=== PATIENT | female | born 1960 | race Caucasian/White ===

== ENCOUNTER 2023-05-20 12:46 | Outpatient (AMB) | payer BC, SELFPAY ==
--- NOTE | 2023-05-20 13:10 | MHC.OFFVIS ---
Intake Intake Visit Reasons: Hx of Nephrolithiasis Intake Note: New Patient presents for initial visit for hx of nephrolithiasis Urology Medications: none Blood Thinner: none Compliance Analyst Required: No Accompanied by: Self / Same As Patient Allergies No Known Allergies Allergy (Verified 05/20/23 14:48) Medication List - Last Reconciled 05/20/23 by KARLOS JoeP-BC alendronate 70 mg PO QWEEK gabapentin 300 mg PO DAILY HPI HPI Comments History of Present Illness Details Naya is a very pleasant 8-year-old female patient of . She presents to the office today as a new patient for nephrolithiasis. In discussion with the patient today she reports recently moving from [place] to [place]. She discusses her longstanding history of nephrolithiasis with multiple previous surgical interventions. She discusses moving here to be closer to her parents however has recently lost her father who was a professor/scientists at [employer]. She reports last surgical intervention for nephrolithiasis was earlier this year. She reports that although she was living here in [place] she drove to [place] for further stone intervention. She discusses at length multiple 24 hour urine collections she has had in the past at which time she was noted to have hypercalcemia and has since been following a alkalinic diet. She discusses when following her diet she typically does not have any issues however under stressful events she will experience nephrolithiasis. When asked she is currently reporting intermittent left-sided flank pain. She otherwise denies urinary urgency, urinary frequency, incontinence, nocturia, hematuria, dysuria, foul smelling urine, changes to urinary stream, flank pain, fever, and or chills. She is happy with her current voiding parameters. In office urinalysis results reviewed with the patient today. In review of patient's chart it appears most recent renal ultrasound 10/17 noting left-sided 0.5 mm calculus. Review of Systems Const All systems reviewed & are unremarkable except as noted in HPI and below Reports no additional complaints Eyes Reports no additional complaints ENT Reports no additional complaints Card Reports no additional complaints Resp Reports no additional complaints GI Reports no additional complaints Reports as per HPI Musc Reports no additional complaints Neuro Reports no additional complaints Psych Reports no additional complaints Endo Reports no additional complaints Moo/Lymph Reports no additional complaints Aller/Immun Reports no additional complaints Physical Exam Const General: cooperative, healthy appearing, comfortable, no acute distress, well developed, alert and awake Orientation/consciousness: patient oriented x3 Limitations: no limitations HEENT Head: Yes normal to inspection, Yes normocephalic and Yes atraumatic Ears: hearing grossly normal bilaterally Eyes General: appearance normal, both eyes and all related structures Neck Neck: Yes normal visual inspection and Yes trachea midline Chest Chest palpation & inspection: normal inspection of the chest Resp Effort & Inspection: normal respiratory effort and able to speak in complete sentences Cardio Rate: regular rate GI Inspection: Yes normal to inspection General: Yes no CVA tenderness Back/Spine/Pelvis Back: no CVA tenderness Skin General skin exam: no rashes or lesions noted Neuro General: patient oriented x3 Extrem General: Yes normal to inspection Psych Appearance: grossly normal and well kempt Mental Status: mental status grossly normal Speech and movement: Normal speech and movement present and Clear speech present Affect: normal affect Attitude: cooperative Thought process: Normal thought process present Thought content: Normal thought content present Insight: Good insight present (Psych) Judgement: Good judgement present (Psych) Results AMB Urinalysis, Automated UA Leukoctes 0 Divya/uL Last Edit by [employer] on 05/20/23 13:22 UA Nitrite Negative Last Edit by [employer] on 05/20/23 13:22 UA Urobilinogen 0.2 mg/dL Last Edit by [employer] on 05/20/23 13:22 UA Protein 0 mg/dL Last Edit by [employer] on 05/20/23 13:22 UA pH 7.0 Last Edit by [employer] on 05/20/23 13:22 UA Blood 0 Aditya/uL Last Edit by [employer] on 05/20/23 13:22 UA Specific [place] 1.010 Last Edit by [employer] on 05/20/23 13:22 UA Ketone Negative Last Edit by [employer] on 05/20/23 13:22 UA Bilirubin 0 mg/dL Last Edit by [employer] on 05/20/23 13:22 UA Glucose 0 mg/dL Last Edit by [employer] on 05/20/23 13:22 Results Reviewed Results Reviewed: Laboratory Last Values Urine pH (Auto) 7.0 05/20/23 13:12 Specific [place] (Auto) 1.010 05/20/23 13:12 Urine Protein (Auto) 0 mg/dL 05/20/23 13:12 Glucose (UA)(Auto) 0 mg/dL 05/20/23 13:12 Urine Ketones (Auto) Negative 05/20/23 13:12 Urine Blood (Auto) 0 Aditya/uL 05/20/23 13:12 Urine Nitrite (Auto) Negative 05/20/23 13:12 Urine Bilirubin (Auto) 0 mg/dL 05/20/23 13:12 Urine Urobilinogen (Auto) 0.2 mg/dL 05/20/23 13:12 Leukocyte Esterase (Auto) 0 Divya/uL 05/20/23 13:12 Assessment & Plan Assessment & Plan (1) Nephrolithiasis: Code(s): N20.0 - Calculus of kidney (2) Flank pain: Code(s): R10.9 - Unspecified abdominal pain Plan In office urinalysis results reviewed with the patient today; as noted above. Will obtain renal ultrasound for further assessment evaluation. Will obtain 24 hour urine collection for further assessment evaluation. Discussed, educated, encouraged on the importance of drinking plenty of water daily. Discussed possible near future potassium citrate and or vitamin B6. Patient reports be happy with current voiding parameters. Follow-up in 1-2 months with imaging and 24 urine collection to be completed prior; or sooner with any issues, concerns, and or questions. Orders: Orders AMB Urinalysis Automated Today Z13.9 - Encounter for screening, unspecified URORISK Today N20.0 - Calculus of kidney US renal BI Today N20.0 - Calculus of kidney Patient Instructions: The patient had an opportunity to ask questions regarding the treatment plan. All questions were answered. Physical exam, labs, and imaging were discussed and reviewed in detail. As well as risks, benefits, and discussion of treatment choices. No major barriers to understanding were identified. The patient expressed understanding and agreement with the above treatment plan. The patient was made aware they should contact our office by phone for worsening of their current condition, the appearance of new symptoms, or with any questions or concerns. Compliance is encouraged with any medications and follow up testing that is ordered. It is a privilege to be allowed the opportunity to participate in? your urological care.? Again, if you have any questions or concerns If you have any questions or concerns please do not hesitate to contact me. The office is [phone]. This note is constructed using voice recognition software. While every effort has been made to ensure accuracy united states marshal errors may have been included. Yours sincerely, LIVAN Joe-KOLBY Coding Level of Care Code New Pt Level 3 (32816) Diagnoses Nephrolithiasis N20.0 Flank pain R10.9
== END 2023-05-20 13:59 | disposition home or self-care (01) ==
PROVIDERS: PCP Family Medicine Adult Medicine; Visit Provider Nurse Practitioner Family
DX: N20.0 Calculus of kidney (principal); R10.9 Unspecified abdominal pain; Z13.9 Encounter for screening, unspecified
CPT/HCPCS: 99203

== ENCOUNTER → 2023-05-20 12:46 | Outpatient (BNVA) | payer BC, SELFPAY | PROVIDERS: PCP Family Medicine Adult Medicine; Visit Provider Nurse Practitioner Family | DX: N20.0 Calculus of kidney (principal) | CPT/HCPCS: 81003 ==

== ENCOUNTER 2023-07-07 11:24 | Outpatient (REF) | payer BC, SELFPAY ==
--- NOTE | ~2023-07-07 | US_ITS ---
EXAMINATION: US RETROPERITONEAL LIMITED (RENAL ONLY) CLINICAL INFORMATION: Calculus of kidney. COMPARISON: None available. TECHNIQUE: Real-time imaging of the kidneys. Limited visualization due to bowel gas and body habitus. FINDINGS: RIGHT KIDNEY: 9.4 x 3.6 x 5.6 cm (SAG x AP x TRV). Right renal 0.5 cm lower pole calculus. No hydronephrosis. Renal cortical thickness is normal. Limited visualization. LEFT KIDNEY: 11.2 x 5.0 x 6.1 cm (SAG x AP x TRV). No hydronephrosis. A 0.3 cm upper pole calculus. Renal cortical thickness is normal. Limited visualization. US/US renal BI IMPRESSION: Bilateral nephrolithiasis. Bilateral nonobstructive renal calculi. No hydronephrosis.
== END 2023-07-07 11:25 | disposition home or self-care (01) ==
LOC: HO.HMGCX 11:24
PROVIDERS: Visit Provider Nurse Practitioner Family
DX: N20.0 Calculus of kidney (principal)
CPT/HCPCS: 76775

== ENCOUNTER 2023-07-18 10:59 | Outpatient (AMB) | payer BC, SELFPAY ==
--- NOTE | 2023-07-18 11:06 | A.OFFVIS_ITS ---
Intake Intake Visit Reasons: US results Intake Note: Patient presents for follow up visit for hx of nephrolithiasis/ultrasound/litholink (imaging 07/07/23) Urology Medications: none Blood Thinner: none Anesthesiologist Required: No Accompanied by: Self / Same As Patient Allergies No Known Allergies Allergy (Verified 07/19/23 21:04) Medication List - Last Reconciled 07/19/23 by EMILY Joe gabapentin 300 mg PO DAILY HPI HPI Comments History of Present Illness Details Naya is a very pleasant 62-year-old female patient of . She presents to the office today for follow-up of her nephrolithiasis. Recent renal imaging results reviewed with the patient today. Right kidney with 5 mm lower pole calculus. No hydronephrosis. Left kidney with 3 mm upper pole calculus. No hydronephrosis. When asked patient reports to be doing and feeling well. Recent 24 hour urine collection results reviewed with the patient today. Discussed at length hypercalciuria noted on recent 24 hour urine collection. Discussed initiation of indapamide 2.5 mg daily with reassessment of 24 hour urine collection in 3 months. However, patient discusses having recently gone to a homeopathic provider and will be undergoing bioidentical HRT and is not looking to start any new medications at this time. When asked she does report intermittent bilateral flank pain. However, she denies urinary urgency, urinary frequency, incontinence, nocturia, hematuria, dysuria, foul- smelling urine, changes to urinary stream, fever, and or chills. She is happy with her current voiding parameters. In office urinalysis results reviewed with the patient today. She has an extensive nephrolithiasis workup with previous surgical interventions in [place] with her previous urologist. She moved her from [place] to be closer to her parents however has recently lost her father who was a professor/rocket scientist at [employer]. She discusses at length having had multiple 24 hour urine collections in the past at which time she was noted to have hypercalcemia and has since been following a alkalinic diet. She discusses when following her diet she typically does not have any issues however under stressful events she will experience nephrolithiasis. She otherwise denies any other issues or concerns at this time. Review of Systems Const All systems reviewed & are unremarkable except as noted in HPI and below Reports no additional complaints Eyes Reports no additional complaints ENT Reports no additional complaints Card Reports no additional complaints Resp Reports no additional complaints GI Reports no additional complaints Reports as per HPI Musc Reports no additional complaints Neuro Reports no additional complaints Psych Reports no additional complaints Endo Reports no additional complaints Moo/Lymph Reports no additional complaints Aller/Immun Reports no additional complaints Physical Exam Const General: cooperative, healthy appearing, comfortable, no acute distress, well developed, alert and awake Orientation/consciousness: patient oriented x3 Limitations: no limitations HEENT Head: Yes normal to inspection, Yes normocephalic and Yes atraumatic Ears: hearing grossly normal bilaterally Eyes General: appearance normal, both eyes and all related structures Neck Neck: Yes normal visual inspection and Yes trachea midline Chest Chest palpation & inspection: normal inspection of the chest Resp Effort & Inspection: normal respiratory effort and able to speak in complete sentences Cardio Rate: regular rate GI Inspection: Yes normal to inspection General: Yes no CVA tenderness Back/Spine/Pelvis Back: no CVA tenderness Skin General skin exam: no rashes or lesions noted Neuro General: patient oriented x3 Extrem General: Yes normal to inspection Psych Appearance: grossly normal and well kempt Mental Status: mental status grossly normal Speech and movement: Normal speech and movement present and Clear speech present Affect: normal affect Attitude: cooperative Thought process: Normal thought process present Thought content: Normal thought content present Insight: Good insight present (Psych) Judgement: Good judgement present (Psych) Results AMB Urinalysis, Automated UA Leukoctes 0 Divya/uL Last Edit by [employer] on 07/18/23 11:30 UA Nitrite Negative Last Edit by [employer] on 07/18/23 11:30 UA Urobilinogen 0.2 mg/dL Last Edit by [employer] on 07/18/23 11:30 UA Protein 0 mg/dL Last Edit by [employer] on 07/18/23 11:30 UA pH 6.5 Last Edit by [employer] on 07/18/23 11:30 UA Blood 0 Aditya/uL Last Edit by [employer] on 07/18/23 11:30 UA Specific [place] 1.005 Last Edit by [employer] on 07/18/23 11:30 UA Ketone Negative Last Edit by [employer] on 07/18/23 11:30 UA Bilirubin 0 mg/dL Last Edit by Ruth Payne on 07/18/23 11:30 UA Glucose 0 mg/dL Last Edit by Ruth Payne on 07/18/23 11:30 Results Reviewed Results Reviewed: Laboratory Last Values Urine pH (Auto) 6.5 07/18/23 11:21 Specific [place] (Auto) 1.005 07/18/23 11:21 Urine Protein (Auto) 0 mg/dL 07/18/23 11:21 Glucose (UA)(Auto) 0 mg/dL 07/18/23 11:21 Urine Ketones (Auto) Negative 07/18/23 11:21 Urine Blood (Auto) 0 Aditya/uL 07/18/23 11:21 Urine Nitrite (Auto) Negative 07/18/23 11:21 Urine Bilirubin (Auto) 0 mg/dL 07/18/23 11:21 Urine Urobilinogen (Auto) 0.2 mg/dL 07/18/23 11:21 Leukocyte Esterase (Auto) 0 Divya/uL 07/18/23 11:21 Date of Service: 07/07/23 EXAMINATION: US RETROPERITONEAL LIMITED (RENAL ONLY) FINDINGS: RIGHT KIDNEY: 9.4 x 3.6 x 5.6 cm (SAG x AP x TRV). Right renal 0.5 cm lower pole calculus. No hydronephrosis. Renal cortical thickness is normal. Limited visualization. LEFT KIDNEY: 11.2 x 5.0 x 6.1 cm (SAG x AP x TRV). No hydronephrosis. A 0.3 cm upper pole calculus. Renal cortical thickness is normal. Limited visualization. IMPRESSION: Bilateral nephrolithiasis. Bilateral nonobstructive renal calculi. No hydronephrosis. 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 Recent renal ultrasound results reviewed with the patient today; as noted above. Recent 24 hour urine collection results reviewed with the patient today; as noted above. Discussed, stress, encouraged on the importance of drinking plenty of water daily. Will obtain CT KUB for further assessment evaluation. Discussed trial of indapamide 2.5 mg daily; however patient declines at this time. Patient reports to be happy with current voiding parameters. Follow-up in 2-4 weeks with imaging to be completed prior; or sooner with any issues, concerns, and or questions. Orders: Orders AMB Urinalysis Automated 07/18/23 Z13.9 - Encounter for screening, unspecified CT kidney stone 07/18/23 N20.0 - Calculus of kidney, R10.9 - Unspecified abdominal pain Patient Instructions: The patient had an opportunity to ask questions regarding the treatment plan. All questions were answered. Physical exam, labs, and imaging were discussed and reviewed in detail. As well as risks, benefits, and discussion of treatment choices. No major barriers to understanding were identified. The patient expressed understanding and agreement with the above treatment plan. The patient was made aware they should contact our office by phone for worsening of their current condition, the appearance of new symptoms, or with any questions or concerns. Compliance is encouraged with any medications and follow up testing that is ordered. It is a privilege to be allowed the opportunity to participate in? your urological care.? Again, if you have any questions or concerns If you have any questions or concerns please do not hesitate to contact me. The office is [phone]. This note is constructed using voice recognition software. While every effort has been made to ensure accuracy bottle and glass inspector errors may have been included. Yours sincerely, EMILY Joe Coding Level of Care Code Est Pt Level 4 (95226) Diagnoses Nephrolithiasis N20.0 Flank pain R10.9 Hypercalciuria R82.994 Time Spent (min) 40
== END 2023-07-18 12:07 | disposition home or self-care (01) ==
PROVIDERS: PCP Family Medicine Adult Medicine; Visit Provider Nurse Practitioner Family
DX: N20.0 Calculus of kidney (principal); R10.9 Unspecified abdominal pain; R82.994 Hypercalciuria
CPT/HCPCS: 99214

== ENCOUNTER 2023-07-18 10:59 | Outpatient (REF) | payer BC, SELFPAY | END 2023-07-18 11:00 | disposition home or self-care (01) | LOC: HO.LAB 10:59 | PROVIDERS: PCP Family Medicine Adult Medicine; Visit Provider Nurse Practitioner Family | DX: N20.0 Calculus of kidney (principal); R10.9 Unspecified abdominal pain; R82.994 Hypercalciuria | CPT/HCPCS: 81003 ==